=== PATIENT | male | born 2000 | race Two or more races ===

== ENCOUNTER 2023-02-15 13:34 | Emergency (ER) | payer SELFPAY ==
[~2023-02-15] VITALS: Ht 170.2 cm; Wt 62.7 kg
[2023-02-15 13:38] VITALS: TEMP 98.6
[2023-02-15 15:01] VITALS: BP 114/74; PULSE 105; RESP 18
== END 2023-02-15 17:24 | disposition left against medical advice (07) ==
LOC: EMS 13:34
DX: Z04.1 Encounter for examination and observation following transport accident (principal); V98.8XXA Other specified transport accidents, initial encounter; W22.10XA Striking against or struck by unspecified automobile airbag, initial encounter; Y93.89 Activity, other specified; Y92.89 Other specified places as the place of occurrence of the external cause; Y99.8 Other external cause status
CPT/HCPCS: 99281; Z7502